=== PATIENT | female | born 1975 | race African-American/Black ===

== ENCOUNTER 2016-09-05 18:01 | Emergency (ER) | payer BC ==
[~2016-09-05 18:01] MED LIST: AMLO2.5T PO; DOCU1CAP39 PO; FERR325T PO; LISI40TA PO
[2016-09-05 18:03] VITALS: BP 189/105; PULSE 73; RESP 15; TEMP 97.8; O2SAT 98
[2016-09-05 18:40] VITALS: BP 175/104; PULSE 75
[2016-09-05 18:52] VITALS: BP 201/111; PULSE 81; RESP 16; O2SAT 99
[2016-09-05 21:00] VITALS: BP 183/107
[2016-09-05] MEDS ORDERED: MECLIZINE HCL 25 MG TAB PO ONE (21:00)
[2016-09-05] MEDS ORDERED: LISINOPRIL 20 MG TAB PO ONE (21:00)
[2016-09-05] MEDS ORDERED: LISI40TA PO (21:08)
[2016-09-05] MEDS ORDERED: MECL-62 PO (21:08)
--- NOTE | 2016-09-05 21:08 | PD ---
HPI Chief Complaint: Dizziness Time Seen by Provider: 20:50 Travel History International Travel<30 days: No Contact w/Intl Traveler<30days: No Traveled to known affect area: No History of Present Illness HPI 40-year-old female complains of lightheaded and dizziness and elevated blood pressure. Patient has history hypertension and ran out of blood pressure medication. Patient usually takes lisinopril 40 mg daily. Patient took 20 mg lisinopril yesterday and non-today. Patient denies any headache. Patient denies any visual change. Patient states that the dizziness is worse with head movement. Patient denies any chest pain or shortness of breath. Patient denies abdominal pain. Patient denies any focal weakness or numbness of extremity. PFSH Past Medical History Anemia: Yes Blood Disorders: No Anxiety: Yes (panic attacks at times) Cancer: No Cardiovascular Problems: Yes Diminished Hearing: No Endocrine: No Genitourinary: No Headaches: Yes Hypertension: Yes Psychiatric: Yes Respiratory: No Seizures: Yes ( A CHILD) ?: Not : 1 Para: 1 Ovarian Cysts: Yes Past Surgical History Abdominal Surgery: Yes (CSEC) Section: Yes (x 1) Social History Alcohol Use: No Tobacco Use: No Substance Use: No Allergies-Medications (Allergen,Severity, Reaction): Coded Allergies: No Known Allergies (Verified , 09/05/16) Reported Meds & Prescriptions Reported Meds & Active Scripts Active Ferrous Sulfate 325 Mg Tab 325 Mg PO BID Lisinopril 40 Mg Tab 40 Mg PO DAILY Review of Systems General / Constitutional: No: Fever Eyes: No: Visual changes HENT: Positive: Lightheadedness, No: Headaches Cardiovascular: No: Chest Pain or Discomfort Respiratory: No: Shortness of Breath Gastrointestinal: No: Abdominal Pain Genitourinary: No: Dysuria Musculoskeletal: No: Pain Skin: No Rash Neurologic: No: Weakness Psychiatric: No: Depression Endocrine: No: Polydipsia Hematologic/Lymphatic: No: Easy Bruising Physical Exam Narrative GENERAL: Well-nourished, well-developed patient. SKIN: Warm and dry. HEAD: Normocephalic. EYES: No scleral icterus. No injection or drainage. NECK: Supple, trachea midline. No JVD or lymphadenopathy. CARDIOVASCULAR: Regular rate and rhythm without murmurs, gallops, or rubs. RESPIRATORY: Breath sounds equal bilaterally. No accessory muscle use. GASTROINTESTINAL: Abdomen soft, non-tender, nondistended. MUSCULOSKELETAL: No cyanosis, or edema. BACK: Nontender without obvious deformity. No CVA tenderness. Neurologic exam normal. Data Data Last Documented VS Vital Signs Date Time Temp Pulse Resp B/P Pulse Ox O2 Delivery O2 Flow Rate FiO2 09/05/16 21:00 183/107 09/05/16 18:52 81 16 99 Room Air 09/05/16 18:03 97.8 Orders Lisinopril (Prinivil) (09/05/16 21:00) Meclizine (Antivert) (09/05/16 21:00) [facility] Medical Decision Making Medical Screen Exam Complete: Yes Emergency Medical Condition: Yes Differential Diagnosis Differential diagnosis including uncontrolled hypertension, hypertensive emergency, hypertensive crisis, acute vertigo. Narrative Course 40-year-old female with dizziness and elevated blood pressure. Patient ran out of blood pressure medication. Lisinopril 40 mg by mouth given. Meclizine 25 mg by mouth given. Diagnosis Primary Impression: Acute onset of severe vertigo Additional Impression: Uncontrolled hypertension Patient Instructions: General Instructions Additional Instructions: Take medications as directed. Follow-up with personal physician. Return if worse. Med/Other Pt SpecificInfo: Prescription(s) given Scripts Lisinopril 40 Mg Tab40 Mg PO DAILY #30 TAB Ref 0 Prov:Kevin Modi MD 09/05/16 Meclizine 25 Mg Tab25 Mg PO TID PRN (VERTIGO) #21 TAB Ref 0 Prov:Kevin Modi MD 09/05/16 Disposition: 01 DISCHARGE HOME Condition: Stable Kevin Modi MD Sep 05, 2016 21:08
== END 2016-09-05 21:21 | disposition home or self-care (01) ==
LOC: NEPA 18:01
DX: R42 Dizziness and giddiness (principal); I10 Essential (primary) hypertension
CPT/HCPCS: 99283

== ENCOUNTER 2016-12-18 18:41 | Emergency (ER) | payer SELFPAY ==
[~2016-12-18] VITALS: Ht 170.2 cm; Wt 90.0 kg
[~2016-12-18 18:41] MED LIST changes: -AMLO2.5T PO; -DOCU1CAP39 PO; +MECL-62 PO
[2016-12-18 18:43] VITALS: BP 168/100; PULSE 96; RESP 20; TEMP 98.2; O2SAT 100
--- NOTE | 2016-12-18 18:54 | PD ---
Physical Exam Date Seen by Provider: Dec 18, 2016 Time Seen by Provider: 18:52 Narrative 41 yo female here for weakness and dizzyness since the afternoon. No precipitating factors. Standing makes dizziness worst. Has headache that feels like a pressure. No chest pain or SOB. No fevers, chills or sweats. Sick contacts in the house. Vitals sign stable. Patient awaiting bed placement. Data Data Last Documented VS Vital Signs Date Time Temp Pulse Resp B/P Pulse Ox O2 Delivery O2 Flow Rate FiO2 12/18/16 18:43 98.2 96 20 168/100 100 Room Air [facility] Medical Record Reviewed: Yes Supervised Visit with JANEEN: Sy Yeh Dec 18, 2016 18:54
[2016-12-18 19:28] VITALS: BP 168/97; PULSE 90; RESP 16; O2SAT 97
[2016-12-18 19:43] VITALS: BP 151/96; PULSE 92
[2016-12-18] MEDS ORDERED: SODIUM CHLOR 0.9% 1000 ML INJ 1,000 ML IV ONE (19:48)
--- NOTE | 2016-12-18 19:50 | PD ---
HPI Chief Complaint: Dizziness Time Seen by Provider: 19:50 Travel History International Travel<30 days: No Contact w/Intl Traveler<30days: No Traveled to known affect area: No History of Present Illness HPI 41-year-old female with a history of hypertension presents to the emergency department for evaluation of weakness, lightheadedness and nausea that began about 4 hours ago. Patient states that after she got off work and went to pick remover her child she started feeling weak and lightheaded. States that she felt physician was going to pass out and felt nauseous. States that since then she has continued to feel weak and nauseous. Denies any fever, chills, vomiting, diarrhea, chest pain, shortness of breath, abdominal pain, numbness or tingling. States she had a slight headache earlier which has resolved. States that she is on her menstrual cycle for the last 3 days and is having heavy vaginal bleeding. States that she's had similar symptoms to this in the past when on her cycle and required a blood transfusion. States that she is not taking her iron supplementation as prescribed. No other complaints. PFSH Past Medical History Anemia: Yes Blood Disorders: No Anxiety: Yes (panic attacks at times) Cancer: No Cardiovascular Problems: Yes Diminished Hearing: No Endocrine: No Genitourinary: No Headaches: Yes Hypertension: Yes Psychiatric: Yes Respiratory: No Seizures: Yes ( A CHILD) Tetanus Vaccination: Unknown Influenza Vaccination: No ?: Not LMP: 12/15/16 : 1 Para: 1 Ovarian Cysts: Yes Past Surgical History Abdominal Surgery: Yes (CSEC) Section: Yes Social History Alcohol Use: No Tobacco Use: No Substance Use: No Allergies-Medications (Allergen,Severity, Reaction): Coded Allergies: No Known Allergies (Verified , 09/05/16) Reported Meds & Prescriptions Reported Meds & Active Scripts Active Lisinopril 40 Mg Tab 40 Mg PO DAILY Meclizine (Meclizine HCl) 25 Mg Tab 25 Mg PO TID PRN Ferrous Sulfate 325 Mg Tab 325 Mg PO BID Lisinopril 40 Mg Tab 40 Mg PO DAILY Review of Systems Except as stated in HPI: all other systems reviewed are Neg Physical Exam Narrative GENERAL: Well-nourished and well-developed pleasant patient in no acute distress who is nontoxic appearing. SKIN: Warm and dry. HEAD: Normocephalic and atraumatic. EYES: No injection, drainage, or hyphema noted. PERRLA. EOMI. ENT: No nasal drainage noted. Oropharynx is clear. NECK: Supple and the trachea is midline. CARDIOVASCULAR: Regular rate and rhythm. RESPIRATORY: Breath sounds are equal bilaterally with no accessory muscle use, wheezing, rhonchi, or crackles. GASTROINTESTINAL: Abdomen is soft, non-tender, and nondistended. MUSCULOSKELETAL: No obvious deformities, swelling, cyanosis, or ecchymosis is present throughout the upper and lower extremities. Patient has full range of motion without any signs of neurovascular compromise. Strength 5/5 upper and lower extremities and equal bilaterally. NEUROLOGICAL: Awake, alert, and oriented. Normal speech and gait. Cranial nerves are grossly intact. Data Data Last Documented VS Vital Signs Date Time Temp Pulse Resp B/P Pulse Ox O2 Delivery O2 Flow Rate FiO2 12/18/16 19:43 92 151/96 12/18/16 19:28 16 12/18/16 19:28 97 Room Air 12/18/16 18:43 98.2 Orders Electrocardiogram (12/18/16 19:48) Complete Blood Count With Diff (12/18/16 19:48) Comprehensive Metabolic Panel (12/18/16 19:48) Chest, Single Ap (12/18/16 19:48) Ecg Monitoring (12/18/16 19:48) Iv Access Insert/Monitor (12/18/16 19:48) Oximetry (12/18/16 19:48) Ondansetron Inj (Zofran Inj) (12/18/16 20:00) Sodium Chloride 0.9% Flush (Ns Flush) (12/18/16 20:00) Sodium Chlor 0.9% 1000 Ml Inj (Ns 1000 M (12/18/16 19:48) Type And Screen (12/18/16 19:51) Ed Urine Pregnancytest Poc (12/18/16 19:57) Troponin I (12/18/16 19:48) Orthostatic Vital Signs (12/18/16 20:55) Labs Laboratory Tests Test 12/18/16 20:05 White Blood Count 6.5 TH/MM3 Red Blood Count 3.57 MIL/MM3 Hemoglobin 8.8 GM/DL Hematocrit 27.5 % Mean Corpuscular Volume 77.0 FL Mean Corpuscular Hemoglobin 24.6 PG Mean Corpuscular Hemoglobin 32.0 % Concent Red Cell Distribution Width 16.0 % Platelet Count 281 TH/MM3 Mean Platelet Volume 9.5 FL Neutrophils (%) (Auto) 72.4 % Lymphocytes (%) (Auto) 18.2 % Monocytes (%) (Auto) 8.3 % Eosinophils (%) (Auto) 0.4 % Basophils (%) (Auto) 0.7 % Neutrophils # (Auto) 4.7 TH/MM3 Lymphocytes # (Auto) 1.2 TH/MM3 Monocytes # (Auto) 0.5 TH/MM3 Eosinophils # (Auto) 0.0 TH/MM3 Basophils # (Auto) 0.0 TH/MM3 CBC Comment AUTO DIFF Blood Type B POSITIVE MDM Medical Decision Making Medical Screen Exam Complete: Yes Emergency Medical Condition: Yes Differential Diagnosis Symptomatic anemia versus dehydration versus electrolyte abnormality versus other Narrative Course 41-year-old female with a history of weakness, lightheadedness and nausea began this afternoon. Patient is afebrile. She is slightly tachycardic with a heart rate of 96 bpm. Otherwise vital signs within normal limits. Physical examination is unremarkable. No focal neurologic deficits. IV access is obtained, labs were drawn and sent. Patient is placed on cardiac telemetry and pulse oximetry monitoring. Patient is administered IV fluids and Zofran. I reviewed the EMR which shows about 6 months ago the patient was admitted for symptom back anemia secondary to heavy vaginal bleeding and did require blood transfusion. Her symptoms at that time were very similar to today's presentation. Patient signed out to my attending physician Dr. Pickard who will assume care of the patient and disposition. Yani Stone Dec 18, 2016 19:50
[2016-12-18] MEDS ORDERED: ONDANSETRON HCL 4 MG/2 ML VIAL IVP ONE (20:00)
[2016-12-18] MEDS ORDERED: SODIUM CHLORIDE 0.9% FLUSH 10 ML FLUSH IVF PRN (20:00)
[2016-12-18 20:29] LABS: AUTOMATED NEUTROPHIL # 4.7 TH/MM3 (1.8-7.7); BASOPHIL % 0.7 % (0.0-2.0); EOSINOPHIL % 0.4 % (0.0-4.0); HEMATOCRIT 27.5 % (35.0-46.0); LYMPH % 18.2 % (9.0-44.0); LYMPHOCYTE # 1.2 TH/MM3 (1.0-4.8); MEAN CORPUSCULAR HEMOGLOBIN 24.6 PG (27.0-34.0); MONO % 8.3 % (0.0-8.0); NEUT % 72.4 % (16.0-70.0); PLATELET COUNT 281 TH/MM3 (150-450); RED BLOOD COUNT 3.57 MIL/MM3 (4.00-5.30); WHITE BLOOD COUNT 6.5 TH/MM3 (4.0-11.0)
[2016-12-18 20:30] LABS: HEMO FLAGS AUTO DIFF
[2016-12-18 21:01] LABS: ANION GAP 6 MEQ/L (5-15); AST (GOT) 11 U/L (15-37); BICARBONATE 27.7 MEQ/L (21.0-32.0); BLOOD UREA NITROGEN 8 MG/DL (7-18); CHLORIDE 104 MEQ/L (98-107); GLOMERULAR FILTRATION RATE 100 ML/MIN (>89); POTASSIUM 3.2 MEQ/L (3.5-5.1); SODIUM (NA) 138 MEQ/L (136-145)
[2016-12-18 21:03] LABS: OVALOCYTES 1+ (NORMAL); PLATELET ESTIMATE SMEAR NORMAL (NORMAL); PLATELET MORPHOLOGY NORMAL (NORMAL); SCAN/DIFF AUTO DIFF CONFIRMED
[2016-12-18 21:05] LABS: ALKALINE PHOSPHATASE 37 U/L (45-117); ALT (GPT) 15 U/L (10-53); TOTAL BILIRUBIN ADULT 0.2 MG/DL (0.2-1.0)
--- NOTE | 2016-12-18 21:15 | RADRPT ---
EXAM DATE/TIME: 12/18/2016 20:25 [facility] COMPARISON: No previous studies available for comparison. INDICATIONS : Patient complains of weakness and dizziness. MEDICAL HISTORY : None. SURGICAL HISTORY : None. ENCOUNTER: Initial ACUITY: 2 days PAIN SCORE: 0/10 LOCATION: chest FINDINGS: A single view of the chest demonstrates the lungs to be symmetrically aerated without evidence of mas s, infiltrate or effusion. The cardiomediastinal contours are unremarkable. Osseous structures are intact. CONCLUSION: No acute disease. Raymond Doll MD on December 18, 2016 at 21:12 Board Certified Radiologist. This report was verified electronically.
[2016-12-18 21:56] VITALS: BP_SYST 153; BP_SYST 157; BP_SYST 161; BP_DIAS 104; BP_DIAS 92; BP_DIAS 93
[2016-12-18 21:59] VITALS: O2SAT 98
--- NOTE | 2016-12-18 22:50 | PD ---
Physical Exam Date Seen by Provider: Dec 18, 2016 Data Data Last Documented VS Vital Signs Date Time Temp Pulse Resp B/P Pulse Ox O2 Delivery O2 Flow Rate FiO2 12/18/16 21:59 98 Room Air 12/18/16 21:56 75 161/104 83 157/93 79 153/92 12/18/16 19:28 16 12/18/16 18:43 98.2 Orders Electrocardiogram (12/18/16 19:48) Complete Blood Count With Diff (12/18/16 19:48) Comprehensive Metabolic Panel (12/18/16 19:48) Chest, Single Ap (12/18/16 19:48) Ecg Monitoring (12/18/16 19:48) Iv Access Insert/Monitor (12/18/16 19:48) Oximetry (12/18/16 19:48) Ondansetron Inj (Zofran Inj) (12/18/16 20:00) Sodium Chloride 0.9% Flush (Ns Flush) (12/18/16 20:00) Sodium Chlor 0.9% 1000 Ml Inj (Ns 1000 M (12/18/16 19:48) Type And Screen (12/18/16 19:51) Ed Urine Pregnancytest Poc (12/18/16 19:57) Troponin I (12/18/16 19:48) Orthostatic Vital Signs (12/18/16 20:55) Labs Laboratory Tests Test 12/18/16 20:05 White Blood Count 6.5 TH/MM3 Red Blood Count 3.57 MIL/MM3 Hemoglobin 8.8 GM/DL Hematocrit 27.5 % Mean Corpuscular Volume 77.0 FL Mean Corpuscular Hemoglobin 24.6 PG Mean Corpuscular Hemoglobin 32.0 % Concent Red Cell Distribution Width 16.0 % Platelet Count 281 TH/MM3 Mean Platelet Volume 9.5 FL Neutrophils (%) (Auto) 72.4 % Lymphocytes (%) (Auto) 18.2 % Monocytes (%) (Auto) 8.3 % Eosinophils (%) (Auto) 0.4 % Basophils (%) (Auto) 0.7 % Neutrophils # (Auto) 4.7 TH/MM3 Lymphocytes # (Auto) 1.2 TH/MM3 Monocytes # (Auto) 0.5 TH/MM3 Eosinophils # (Auto) 0.0 TH/MM3 Basophils # (Auto) 0.0 TH/MM3 CBC Comment AUTO DIFF Differential Comment AUTO DIFF CONFIRMED Platelet Estimate NORMAL Platelet Morphology Comment NORMAL Ovalocytes 1+ Sodium Level 138 MEQ/L Potassium Level 3.2 MEQ/L Chloride Level 104 MEQ/L Carbon Dioxide Level 27.7 MEQ/L Anion Gap 6 MEQ/L Blood Urea Nitrogen 8 MG/DL Creatinine 0.77 MG/DL Estimat Glomerular Filtration 100 ML/MIN Rate Random Glucose 89 MG/DL Calcium Level 8.4 MG/DL Total Bilirubin 0.2 MG/DL Aspartate Amino Transf 11 U/L (AST/SGOT) Alanine Aminotransferase 15 U/L (ALT/SGPT) Alkaline Phosphatase 37 U/L Troponin I LESS THAN 0.02 NG/ML Total Protein 7.3 GM/DL Albumin 3.6 GM/DL Blood Type B POSITIVE Antibody Screen NEGATIVE MDM Medical Record Reviewed: Yes Supervised Visit with JANEEN: Yes Interpretation(s) EKG at 2158: NSR at 75bpm, qt/qtc: 399/428, no acute st or t wave changes Vital Signs Date Time Temp Pulse Resp B/P Pulse Ox O2 Delivery O2 Flow Rate FiO2 12/18/16 21:59 98 Room Air 12/18/16 21:56 75 161/104 83 157/93 79 153/92 12/18/16 19:43 92 151/96 12/18/16 19:28 16 12/18/16 19:28 90 16 168/97 97 Room Air 12/18/16 18:43 98.2 96 20 168/100 100 Room Air Laboratory Tests Test 12/18/16 20:05 White Blood Count 6.5 TH/MM3 (4.0-11.0) Red Blood Count 3.57 MIL/MM3 (4.00-5.30) Hemoglobin 8.8 GM/DL (11.6-15.3) Hematocrit 27.5 % (35.0-46.0) Mean Corpuscular Volume 77.0 FL (80.0-100.0) Mean Corpuscular Hemoglobin 24.6 PG (27.0-34.0) Mean Corpuscular Hemoglobin 32.0 % Concent (32.0-36.0) Red Cell Distribution Width 16.0 % (11.6-17.2) Platelet Count 281 TH/MM3 (150-450) Mean Platelet Volume 9.5 FL (7.0-11.0) Neutrophils (%) (Auto) 72.4 % (16.0-70.0) Lymphocytes (%) (Auto) 18.2 % (9.0-44.0) Monocytes (%) (Auto) 8.3 % (0.0-8.0) Eosinophils (%) (Auto) 0.4 % (0.0-4.0) Basophils (%) (Auto) 0.7 % (0.0-2.0) Neutrophils # (Auto) 4.7 TH/MM3 (1.8-7.7) Lymphocytes # (Auto) 1.2 TH/MM3 (1.0-4.8) Monocytes # (Auto) 0.5 TH/MM3 (0-0.9) Eosinophils # (Auto) 0.0 TH/MM3 (0-0.4) Basophils # (Auto) 0.0 TH/MM3 (0-0.2) CBC Comment AUTO DIFF Differential Comment AUTO DIFF CONFIRMED Platelet Estimate NORMAL (NORMAL) Platelet Morphology Comment NORMAL (NORMAL) Ovalocytes 1+ (NORMAL) Sodium Level 138 MEQ/L (136-145) Potassium Level 3.2 MEQ/L (3.5-5.1) Chloride Level 104 MEQ/L (98-107) Carbon Dioxide Level 27.7 MEQ/L (21.0-32.0) Anion Gap 6 MEQ/L (5-15) Blood Urea Nitrogen 8 MG/DL (7-18) Creatinine 0.77 MG/DL (0.50-1.00) Estimat Glomerular Filtration 100 ML/MIN Rate (>89) Random Glucose 89 MG/DL (74-106) Calcium Level 8.4 MG/DL (8.5-10.1) Total Bilirubin 0.2 MG/DL (0.2-1.0) Aspartate Amino Transf 11 U/L (15-37) (AST/SGOT) Alanine Aminotransferase 15 U/L (10-53) (ALT/SGPT) Alkaline Phosphatase 37 U/L (45-117) Troponin I LESS THAN 0.02 NG/ML (0.02-0.05) Total Protein 7.3 GM/DL (6.4-8.2) Albumin 3.6 GM/DL (3.4-5.0) Blood Type B POSITIVE Antibody Screen NEGATIVE Last Impressions Chest X-Ray 12/18/161947 Signed Impressions: Service Date/Time: Sunday, December 18, 2016 20:25 - CONCLUSION: No acute disease. Raymond Doll MD Differential Diagnosis Anemia, dehydration, electrolyte abnormality, arrhythmia Narrative Course I, Dr. Pickard, have reviewed the advance practice practitioner's documentation and am in agreement, met with the patient face to face, made the diagnosis, and the medical decision making was done by me. *My assessment and Findings: Symptomatic anemia most likely from menstrual bleeding and iron deficiency anemia. Patient is a 41-year-old female who presents to emergency room with complaints of lightheadedness, dizziness, nausea which began around 4 hours prior to arrival to emergency room. Patient reports that she currently is on day 3 of her menstrual cycle, patient reports that she has had very heavy menstrual bleeding. Patient reports that she does have history of anemia, reports that she is supposed to be taking iron supplements, reports that she stopped taking these iron supplements as she was feeling better. Patient here as she was concerned that her blood count was low or her blood pressure was too high. Patient did have blood work while emergency room. CBC & BMP Diagram 12/18/16 20:05 Patient's hemoglobin is 8.8, this was reviewed with patient. We'll restart her iron supplements. Patient reports that overall, she is feeling much better at this time. Signs and symptoms of when to return to the emergency room was reviewed with patient. Patient understands importance of following with a primary care doctor. She will return to the emergency as needed or symptoms worsen or progress. Diagnosis Primary Impression: Anemia Qualified Code: D50.8 - Other iron deficiency anemia Additional Impressions: Dizziness Hypokalemia Patient Instructions: General Instructions Additional Instruction: Please follow-up with your primary care doctor Return to emergency medicine as needed Return to the ER if your symptoms worsen or progress Please take her iron supplements for your anemia Disposition: 01 DISCHARGE HOME Condition: Stable NeerajManjula DO Dec 18, 2016 22:50
[2016-12-18] MEDS ORDERED: POTASSIUM CHLORIDE 10 MEQ CONTROLLED RELEASE TAB PO ONE (23:00)
--- NOTE | 2016-12-19 19:11 | EKG ---
Date Performed: 12/18/2016 Time Performed: 21:58:19 PTAGE: 41 years EKG: Sinus rhythm NORMAL ECG PREVIOUS TRACING : 07/22/2016 22.46 Compared to prior tracing no significant change DOCTOR: Jeremy Carty Interpretating Date/Time 12/19/2016 19:10:16
== END 2016-12-18 23:21 | disposition home or self-care (01) ==
LOC: NEPD 18:41
DX: D50.0 Iron deficiency anemia secondary to blood loss (chronic) (principal); I10 Essential (primary) hypertension; E87.6 Hypokalemia; Z91.14 Patient's other noncompliance with medication regimen
CPT/HCPCS: 71010; 80053; 84484; 85025; 86850; 86900; 86901; 93005; 96361; 96374; 99285; J2405; J7030

== ENCOUNTER 2017-04-07 18:26 | Emergency (ER) | payer SELFPAY ==
[2017-04-07] VITALS (7 sets, daily range): BP systolic 146–183; BP diastolic 96–108; PULSE 74–85; RESP 16–18; TEMP 98.6; O2SAT 97–99
[~2017-04-07] VITALS: Ht 170.2 cm; Wt 90.0 kg
[2017-04-07] MEDS ORDERED: SODIUM CHLORIDE 0.9% FLUSH 10 ML FLUSH IVF PRN (19:45)
[2017-04-07] MEDS ORDERED: cloNIDine HCL 0.1 MG TAB PO ONE (19:45)
--- NOTE | 2017-04-07 19:48 | PD ---
HPI Chief Complaint: Hypertension Time Seen by Provider: 19:41 Travel History International Travel<30 days: No Contact w/Intl Traveler<30days: No Traveled to known affect area: No History of Present Illness HPI 41-year-old female presents to the emergency department for evaluation of high blood pressure and tingling about the head and not feeling well. Patient states she's been out of her [facility] blood pressure medication times one month and took her last dose of lisinopril today 20 mg this morning and a remaining half dose of 10 mg this evening after 4 PM. Patient denies sudden onset worst ever headache visual disturbance blurred vision double vision loss of vision confusion difficulty with speech difficulty swallowing balance disturbance upper or lower extremity numbness tingling or weakness also denies any chest pain palpitations sweats nausea vomiting shortness of breath abdominal pain referred neck jaw back shoulder arm pain. Pain in triage 6/10, presently 0/10. Patient states that she has not felt well all day. Patient states that she was here at the hospital bringing her brother to the hospital for evaluation when she started to feel suddenly worse. Patient has long-standing history of poorly controlled hypertension. Patient also has history of anemia and required blood transfusion within the past 6 months. Patient states she has heavy menses and was not aware she was anemic and that she had not had issues with requiring previous transfusion. Patient takes no current iron supplementation. Patient's last period is current. PFSH Past Medical History Narrative Medical Anemia anxiety hypertension headaches childhood seizure Ab0 no tobacco use no alcohol use no substance use; nursing notes reviewed Anemia: Yes Blood Disorders: No Anxiety: Yes (panic attacks at times) Cancer: No Cardiovascular Problems: Yes Diminished Hearing: No Endocrine: No Genitourinary: No Headaches: Yes Hypertension: Yes Psychiatric: Yes Respiratory: No Seizures: Yes ( A CHILD) : 1 Para: 1 Ovarian Cysts: Yes Past Surgical History Abdominal Surgery: Yes (CSEC) Section: Yes Social History Alcohol Use: No Tobacco Use: No Substance Use: No Allergies-Medications (Allergen,Severity, Reaction): Coded Allergies: No Known Allergies (Verified , 04/07/17) Reported Meds & Prescriptions Reported Meds & Active Scripts Active Macrobid (Nitrofurantoin Monoh/Nitrofur Macro) 100 Mg Cap 100 Mg PO BID Amlodipine (Amlodipine Besylate) 10 Mg Tab 10 Mg PO DAILY Lisinopril 20 Mg Tab 20 Mg PO DAILY Reported Amlodipine (Amlodipine Besylate) 10 Mg Tab 10 Mg PO DAILY Lisinopril 20 Mg Tab 20 Mg PO DAILY Ferrous Sulfate 325 Mg (65 Mg Iron) Tablet 325 Mg PO DAILY Review of Systems Except as stated in HPI: all other systems reviewed are Neg General / Constitutional: No: Fever, Chills Eyes: No: Visual changes HENT: Positive: Headaches (this am--not sudden onset not thunderclap not worst ever), No: Vertigo, Neck Pain Cardiovascular: No: Chest Pain or Discomfort Respiratory: No: Shortness of Breath Gastrointestinal: No: Abdominal Pain Genitourinary: No: Flank Pain Musculoskeletal: No: Pain Skin: No Rash Neurologic: No: Weakness Psychiatric: No: Anxiety Hematologic/Lymphatic: No: Lymph Node Enlargement Physical Exam Narrative GENERAL: Well-developed well-nourished female in no acute distress no respiratory distress; GCS 15; blood pressure hypertensive SKIN: Warm and dry. HEAD: Atraumatic. Normocephalic. EYES: Pupils equal and round. Extraocular muscles intact. No scleral icterus. No injection or drainage. ENT: No nasal bleeding or discharge. Mucous membranes pink and moist. NECK: Trachea midline. No JVD. Supple no meningismus. CARDIOVASCULAR: Regular rate and rhythm. RESPIRATORY: No accessory muscle use. Clear to auscultation. Breath sounds equal bilaterally. GASTROINTESTINAL: Abdomen soft, non-tender, nondistended. Hepatic and splenic margins not palpable. MUSCULOSKELETAL: Extremities without clubbing, cyanosis, or edema. No obvious deformities. NEUROLOGICAL: Awake and alert. No obvious cranial nerve deficits. Motor grossly within normal limits. Five out of 5 muscle strength in the arms and legs. No limb ataxia. No pronator drift. Sensory exam intact. Normal speech. PSYCHIATRIC: Appropriate mood and affect; insight and judgment normal. Data Data Last Documented VS Vital Signs Date Time Temp Pulse Resp B/P Pulse Ox O2 Delivery O2 Flow Rate FiO2 04/07/17 20:05 85 18 162/96 97 Room Air 04/07/17 18:31 98.6 Orders Electrocardiogram (04/07/17 19:41) Basic Metabolic Panel (Bmp) (04/07/17 19:41) Complete Blood Count With Diff (04/07/17 19:41) Magnesium (Mg) (04/07/17 19:41) Urinalysis - C+S If Indicated (04/07/17 19:41) Chest, Single Ap (04/07/17 19:41) Ecg Monitoring (04/07/17 19:41) Iv Access Insert/Monitor (04/07/17 19:41) Oximetry (04/07/17 19:41) Sodium Chloride 0.9% Flush (Ns Flush) (04/07/17 19:45) Ed Urine Pregnancytest Poc (04/07/17 19:41) Clonidine (Catapres) (04/07/17 19:45) Urine Culture (04/07/17 19:40) Labs Laboratory Tests Test 04/07/17 19:40 White Blood Count 6.2 TH/MM3 Red Blood Count 4.34 MIL/MM3 Hemoglobin 10.9 GM/DL Hematocrit 33.8 % Mean Corpuscular Volume 77.8 FL Mean Corpuscular Hemoglobin 25.1 PG Mean Corpuscular Hemoglobin 32.2 % Concent Red Cell Distribution Width 19.1 % Platelet Count 267 TH/MM3 Mean Platelet Volume 9.5 FL Neutrophils (%) (Auto) 54.2 % Lymphocytes (%) (Auto) 32.1 % Monocytes (%) (Auto) 9.0 % Eosinophils (%) (Auto) 2.6 % Basophils (%) (Auto) 2.1 % Neutrophils # (Auto) 3.3 TH/MM3 Lymphocytes # (Auto) 2.0 TH/MM3 Monocytes # (Auto) 0.6 TH/MM3 Eosinophils # (Auto) 0.2 TH/MM3 Basophils # (Auto) 0.1 TH/MM3 CBC Comment DIFF FINAL Differential Comment Urine Color YELLOW Urine Turbidity SLIGHT Urine pH 6.5 Urine Specific [place] 1.029 Urine Protein 30 mg/dL Urine Glucose (UA) NEG mg/dL Urine Ketones NEG mg/dL Urine Occult Blood LARGE Urine Nitrite NEG Urine Bilirubin NEG Urine Leukocyte Esterase SMALL Urine RBC 100-200 /hpf Urine WBC 9-14 /hpf Urine WBC Clumps FEW Urine Squamous Epithelial 0-5 /hpf Cells Urine Bacteria FEW /hpf Microscopic Urinalysis Comment CULTURE INDICATED Sodium Level 138 MEQ/L Potassium Level 3.7 MEQ/L Chloride Level 106 MEQ/L Carbon Dioxide Level 26.0 MEQ/L Anion Gap 6 MEQ/L Blood Urea Nitrogen 11 MG/DL Creatinine 0.76 MG/DL Estimat Glomerular Filtration 101 ML/MIN Rate Random Glucose 86 MG/DL Calcium Level 8.3 MG/DL Magnesium Level 2.1 MG/DL MDM Medical Decision Making Medical Screen Exam Complete: Yes Emergency Medical Condition: Yes Medical Record Reviewed: Yes Interpretation(s) EKG: Normal sinus rhythm rate [address] elevation or injury pattern or ectopy noted POC hcg: negative UA: Positive protein positive blood positive white blood cells positive for clumped white blood cells constant few bacteria; culture indicated, possible cross contamination secondary to menses Last Impressions Chest X-Ray 04/07/171940 Signed Impressions: Service Date/Time: Friday, April 07, 2017 19:52 - CONCLUSION: Mild enlargement of the heart. Raymond Doll MD CBC & BMP Diagram 04/07/17 19:40 Vital Signs Date Time Temp Pulse Resp B/P Pulse Ox O2 Delivery O2 Flow Rate FiO2 04/07/17 19:40 99 Room Air 04/07/17 19:30 76 18 183/107 99 04/07/17 18:31 98.6 83 16 175/108 99 Room Air Differential Diagnosis Uncontrolled hypertension, hypertensive urgency, electronic disturbance, anemia , noncompliance, refill Narrative Course 41-year-old female with some somatic poorly controlled hypertension after taking lisinopril 30 mg by mouth today without improvement of blood pressure elevation or symptom relief. IV access obtained patient placed on cardiac monitors specimens collected and patient given a one-time dose of clonidine 0.1 mg by mouth Repeat blood pressure 160/90 prior to administration of clonidine Patient's blood pressure again increasing therefore clonidine was administered; diagnostics found to be in normal range; prescription refills provided At 9:25 PM patient is clinically improved and stable for outpatient management; pain 0/10 Diagnosis Primary Impression: HTN (hypertension) Qualified Code: I10 - Essential hypertension Additional Impressions: Medication refill Abnormal urinalysis Referrals: Primary Care Physician call for appointment Patient Instructions: General Instructions Additional Instructions: Take chronic antihypertensive medications as prescribed Follow-up with your primary care provider Return to the emergency department for any concerns or change in condition Med/Other Pt SpecificInfo: Prescription(s) given Scripts Clonidine 0.1 Mg Tab0.1 Mg PO Q12HR PRN (SBP>180, DBP>95) #5 TAB Ref 0 Prov:Mindy Abbott MD 04/07/17 Nitrofurantoin Monohydrate Macrocrystals (Macrobid)100 Mg [id number] Mg PO BID #6 CAP Ref 0 Prov:Mindy Abbott MD 04/07/17 Amlodipine 10 Mg Tab10 Mg PO DAILY #30 TAB Ref 0 Prov:Mindy Abbott MD 04/07/17 Lisinopril 20 Mg Tab20 Mg PO DAILY #30 TAB Ref 0 Prov:Mindy Abbott MD 04/07/17 Disposition: 01 DISCHARGE HOME Condition: Stable Mindy Abbott MD Apr 07, 2017 19:48
--- NOTE | 2017-04-07 20:00 | RADRPT ---
EXAM DATE/TIME: 04/07/2017 19:52 [facility] COMPARISON: CHEST SINGLE AP, December 18, 2016, 20:25. INDICATIONS : Short of breath. MEDICAL HISTORY : Hypertension. SURGICAL HISTORY : None. ENCOUNTER: Initial ACUITY: 1 day PAIN SCORE: 0/10 LOCATION: Bilateral chest FINDINGS: The heart size is mildly enlarged. The lungs are clear. No effusion is seen. CONCLUSION: Mild enlargement of the heart. Raymond Doll MD on April 07, 2017 at 19:58 Board Certified Radiologist. This report was verified electronically.
[2017-04-07 20:06] LABS: BLOOD, URINE LARGE (NEG); GLUCOSE,URINE NEG (NEG); KETONE, URINE NEG (NEG); NITRITE,URINE NEG (NEG); PH, URINE 6.5 (5.0-8.5)
[2017-04-07 20:07] LABS: AUTOMATED NEUTROPHIL # 3.3 TH/MM3 (1.8-7.7); BASOPHIL # 0.1 TH/MM3 (0-0.2); BASOPHIL % 2.1 % (0.0-2.0); EOSINOPHIL # 0.2 TH/MM3 (0-0.4); EOSINOPHIL % 2.6 % (0.0-4.0); HEMATOCRIT 33.8 % (35.0-46.0); HEMO FLAGS DIFF FINAL; LYMPH % 32.1 % (9.0-44.0); MEAN CELL VOLUME 77.8 FL (80.0-100.0); MEAN CORPUSCULAR HEMOGLOBIN 25.1 PG (27.0-34.0); MEAN CORPUSCULAR HGB CONC 32.2 % (32.0-36.0); NEUT % 54.2 % (16.0-70.0); PLATELET COUNT 267 TH/MM3 (150-450); RED BLOOD COUNT 4.34 MIL/MM3 (4.00-5.30); RED CELL DISTRIBUTION WIDTH 19.1 % (11.6-17.2); WHITE BLOOD COUNT 6.2 TH/MM3 (4.0-11.0)
[2017-04-07 20:09] LABS: URINE COLOR YELLOW (YELLW/STRAW)
[2017-04-07 20:11] LABS: BACTERIA, URINE FEW /hpf; COMMENT (UR) CULTURE INDICATED; CULTURE IF INDICATED CULTURE INDICATED; RBC, URINE 100-200 /hpf (0-3); SQUAMOUS EPITHELIAL CELL URINE 0-5 /hpf (0-5)
[2017-04-07 20:18] LABS: POTASSIUM 3.7 MEQ/L (3.5-5.1)
[2017-04-07 20:21] LABS: MAGNESIUM 2.1 MG/DL (1.5-2.5)
[2017-04-07] MEDS ORDERED: FERR325T8 PO (20:42)
[2017-04-07] MEDS ORDERED: LISI-515 PO ×2 (20:42→20:56)
[2017-04-07] MEDS ORDERED: AMLO10TA2 PO ×2 (20:43→20:56)
[2017-04-07] MEDS ORDERED: MACR100C2 PO (20:56)
[2017-04-07] MEDS ORDERED: CLON0.1T PO (21:24)
--- NOTE | 2017-04-08 09:08 | EKG ---
Date Performed: 04/07/2017 Time Performed: 20:00:07 PTAGE: 41 years EKG: Sinus rhythm NORMAL ECG PREVIOUS TRACING : 12/18/2016 21.58 Compared to prior tracing no significant change DOCTOR: Mason Miranda Interpretating Date/Time 04/08/2017 09:01:07
== END 2017-04-07 22:04 | disposition home or self-care (01) ==
LOC: PHED 18:26
DX: I10 Essential (primary) hypertension (principal); R82.99 Other abnormal findings in urine; Z76.0 Encounter for issue of repeat prescription; Z79.899 Other long term (current) drug therapy; Z86.2 Personal history of diseases of the blood and blood-forming organs and certain disorders involving the immune mechanism; Z86.59 Personal history of other mental and behavioral disorders; Z86.79 Personal history of other diseases of the circulatory system; Z86.69 Personal history of other diseases of the nervous system and sense organs; Z87.42 Personal history of other diseases of the female genital tract
CPT/HCPCS: 71010; 80048; 81001; 83735; 84703; 85025; 87086; 93005; 99285

== ENCOUNTER 2017-04-22 22:35 | Emergency (ER) | payer SELFPAY ==
[~2017-04-22 22:35] MED LIST changes: +AMLO10TA2 PO; +CLON0.1T PO; -FERR325T PO; +FERR325T8 PO; +LISI-515 PO; -LISI40TA PO; +MACR100C2 PO; -MECL-62 PO
[2017-04-22 22:38] VITALS: BP 160/96; PULSE 92; RESP 16; TEMP 98.6; O2SAT 100
== END 2017-04-23 00:34 | disposition left against medical advice (07) ==
LOC: NED 22:35
DX: Z53.21 Procedure and treatment not carried out due to patient leaving prior to being seen by health care provider (principal)
CPT/HCPCS: 99281

== ENCOUNTER 2017-08-14 11:35 | Emergency (ER) | payer SELFPAY ==
[~2017-08-14] VITALS: Ht 170.2 cm; Wt 93.0 kg
[~2017-08-14 11:35] MED LIST changes: +FERR325T18 PO; -FERR325T8 PO
[2017-08-14 11:48] VITALS: BP 142/94; PULSE 94; RESP 14; TEMP 98.4; O2SAT 99
[2017-08-14] MEDS ORDERED: SODIUM CHLORIDE 0.9% FLUSH 10 ML FLUSH IVF PRN (12:15)
--- NOTE | 2017-08-14 12:24 | PD ---
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 She denies any chest pains , shortness of breath, abdominal pains, fevers, or any other symptoms. She has had no neurological deficits. She states that she has been having heavy menses although she is not currently having any vaginal bleeding. Modifying Factors: None Associated Signs & Symptoms: Lightheadedness, nausea Risk Factors: History of anemia PFSH Past Medical History Anemia: Yes Blood Disorders: No Anxiety: Yes (panic attacks at times) Cancer: No Cardiovascular Problems: Yes Diminished Hearing: No Endocrine: No Genitourinary: No Headaches: Yes Hypertension: Yes Psychiatric: Yes Respiratory: No Seizures: Yes ( A CHILD) Tetanus Vaccination: Unknown Influenza Vaccination: No ?: Not LMP: JUNE 2017 : 1 Para: 1 Ovarian Cysts: Yes Past Surgical History Abdominal Surgery: Yes (CSEC) Section: Yes Other Surgery: Yes Social History Alcohol Use: No Tobacco Use: No Substance Use: No Allergies-Medications (Allergen,Severity, Reaction): Coded Allergies: No Known Allergies (Verified Adverse Reaction, Unknown, 08/14/17) Reported Meds & Prescriptions Reported Meds & Active Scripts Active Clonidine (Clonidine HCl) 0.1 Mg Tab 0.1 Mg PO Q12HR PRN Macrobid (Nitrofurantoin Monoh/Nitrofur Macro) 100 Mg Cap 100 Mg PO BID Amlodipine (Amlodipine Besylate) 10 Mg Tab 10 Mg PO DAILY Lisinopril 20 Mg Tab 20 Mg PO DAILY Reported Amlodipine (Amlodipine Besylate) 10 Mg Tab 10 Mg PO DAILY Lisinopril 20 Mg Tab 20 Mg PO DAILY Ferrous Sulfate 325 Mg (65 Mg Iron) Tablet 325 Mg PO DAILY Review of Systems Except as stated in HPI: all other systems reviewed are Neg Physical Exam Narrative GENERAL: Well-developed middle age after [place] female patient currently in mild distress. SKIN: Focused skin assessment warm/dry. HEAD: Atraumatic. Normocephalic. EYES: Pupils equal and round. No scleral icterus. No injection or drainage. ENT: No nasal bleeding or discharge. Mucous membranes pink and moist. NECK: Trachea midline. No JVD. CARDIOVASCULAR: Regular rate and rhythm. No murmur appreciated. RESPIRATORY: No accessory muscle use. Clear to auscultation. Breath sounds equal bilaterally. GASTROINTESTINAL: Abdomen soft, non-tender, nondistended. Hepatic and splenic margins not palpable. MUSCULOSKELETAL: No obvious deformities. No clubbing. No cyanosis. No edema. NEUROLOGICAL: Awake and alert. No obvious cranial nerve deficits. Motor grossly within normal limits. Normal speech. PSYCHIATRIC: Appropriate mood and affect; insight and judgment normal. Data Data Last Documented VS Vital Signs Date Time Temp Pulse Resp B/P (MAP) Pulse Ox O2 Delivery O2 Flow Rate FiO2 08/14/17 12:31 94 18 117/80 (92) 98 Room Air 08/14/17 11:48 98.4 Orders Orders Electrocardiogram (08/14/17 12:10) Ed Urine Pregnancytest Poc (08/14/17 12:10) Complete Blood Count With Diff (08/14/17 12:10) Comprehensive Metabolic Panel (08/14/17 12:10) Troponin I (08/14/17 12:10) Urinalysis - C+S If Indicated (08/14/17 12:10) Chest, Single Ap (08/14/17 12:10) Ecg Monitoring (08/14/17 12:10) Iv Access Insert/Monitor (08/14/17 12:10) Oximetry (08/14/17 12:10) Sodium Chloride 0.9% Flush (Ns Flush) (08/14/17 12:15) Labs Laboratory Tests Test 08/14/17 12:27 08/14/17 13:45 White Blood Count 7.3 TH/MM3 Red Blood Count 4.28 MIL/MM3 Hemoglobin 11.3 GM/DL Hematocrit 34.4 % Mean Corpuscular Volume 80.4 FL Mean Corpuscular Hemoglobin 26.4 PG Mean Corpuscular Hemoglobin Concent 32.9 % Red Cell Distribution Width 14.8 % Platelet Count 268 TH/MM3 Mean Platelet Volume 9.3 FL Neutrophils (%) (Auto) 67.2 % Lymphocytes (%) (Auto) 18.9 % Monocytes (%) (Auto) 12.2 % Eosinophils (%) (Auto) 1.2 % Basophils (%) (Auto) 0.5 % Neutrophils # (Auto) 4.9 TH/MM3 Lymphocytes # (Auto) 1.4 TH/MM3 Monocytes # (Auto) 0.9 TH/MM3 Eosinophils # (Auto) 0.1 TH/MM3 Basophils # (Auto) 0.0 TH/MM3 CBC Comment DIFF FINAL Differential Comment Blood Urea Nitrogen 10 MG/DL Creatinine 0.71 MG/DL Random Glucose 88 MG/DL Total Protein 7.9 GM/DL Albumin 3.3 GM/DL Calcium Level 8.4 MG/DL Alkaline Phosphatase 45 U/L Aspartate Amino Transf (AST/SGOT) 13 U/L Alanine Aminotransferase (ALT/SGPT) 19 U/L Total Bilirubin 0.4 MG/DL Sodium Level 139 MEQ/L Potassium Level 3.8 MEQ/L Chloride Level 106 MEQ/L Carbon Dioxide Level 26.5 MEQ/L Anion Gap 7 MEQ/L Estimat Glomerular Filtration Rate 110 ML/MIN Troponin I LESS THAN 0.02 NG/ML Urine Color YELLOW Urine Turbidity HAZY Urine pH 6.0 Urine Specific [place] 1.029 Urine Protein 30 mg/dL Urine Glucose (UA) NEG mg/dL Urine Ketones NEG mg/dL Urine Occult Blood NEG Urine Nitrite NEG Urine Bilirubin NEG Urine Urobilinogen LESS THAN 2.0 MG/DL Urine Leukocyte Esterase SMALL Urine RBC 1 /hpf Urine WBC 2 /hpf Urine Squamous Epithelial Cells 4 /hpf Urine Mucus MOD /lpf Microscopic Urinalysis Comment CULT NOT INDICATED MDM Medical Decision Making Medical Screen Exam Complete: Yes Emergency Medical Condition: Yes Medical Record Reviewed: Yes Interpretation(s) EKG shows NSR, no ST elevation or depression, and no arrhythmias. No significant T-wave inversions. No signs of QT prolongation or delta waves. Laboratory Tests Test 08/14/17 12:27 08/14/17 13:45 Hemoglobin 11.3 GM/DL (11.6-15.3) Hematocrit 34.4 % (35.0-46.0) Mean Corpuscular Hemoglobin 26.4 PG (27.0-34.0) Monocytes (%) (Auto) 12.2 % (0.0-8.0) Albumin 3.3 GM/DL (3.4-5.0) Calcium Level 8.4 MG/DL (8.5-10.1) Aspartate Amino Transf (AST/SGOT) 13 U/L (15-37) Troponin I LESS THAN 0.02 NG/ML Urine Turbidity HAZY (CLEAR) Urine Protein 30 mg/dL (NEG-TRACE) Urine Leukocyte Esterase SMALL (NEG) Urine Mucus MOD /lpf (OCC) Last 24 hours Impressions Chest X-Ray 08/14/17 1210 Signed Impressions: Service Date/Time: Monday, August 14, 2017 12:16 - CONCLUSION: No acute disease. Alejo Deshpande MD FACR Differential Diagnosis Dizziness, nausea: Symptomatic anemia versus dehydration versus metabolic issues versus vertigo versus dysrhythmias Narrative Course Lab work did not indicate significant metabolic issues or dehydration. EKG did not show any dysrhythmias. She has not anemic. At this point, vital signs are stable. My plan would be to release her with follow-up to primary care doctor. Return for worsening in symptoms as necessary. The plan has discussed with her and she states understanding. Diagnosis Primary Impression: Dizziness Disposition: 01 DISCHARGE HOME Condition: Stable Meghna Yepez MD Aug 14, 2017 12:23
--- NOTE | 2017-08-14 12:29 | RADRPT ---
EXAM DATE/TIME: 08/14/2017 12:16 [facility] COMPARISON: CHEST SINGLE AP, April 07, 2017, 19:52. INDICATIONS : Shortness of breath and light headedness. MEDICAL HISTORY : Hypertension. SURGICAL HISTORY : None. ENCOUNTER: Initial ACUITY: 3 days PAIN SCORE: 0/10 LOCATION: Bilateral chest FINDINGS: A single view of the chest demonstrates the lungs to be symmetrically aerated without evidence of mas s, infiltrate or effusion. The cardiomediastinal contours are unremarkable. Osseous structures are intact. CONCLUSION: No acute disease. Alejo Deshpande MD FACR on August 14, 2017 at 12:27 Board Certified Radiologist. This report was verified electronically.
[2017-08-14 12:31] VITALS: BP 117/80; PULSE 94; RESP 18; O2SAT 98
[2017-08-14 12:52] LABS: AUTOMATED NEUTROPHIL # 4.9 TH/MM3 (1.8-7.7); BASOPHIL % 0.5 % (0.0-2.0); EOSINOPHIL # 0.1 TH/MM3 (0-0.4); EOSINOPHIL % 1.2 % (0.0-4.0); HEMATOCRIT 34.4 % (35.0-46.0); HEMOGLOBIN 11.3 GM/DL (11.6-15.3); LYMPH % 18.9 % (9.0-44.0); LYMPHOCYTE # 1.4 TH/MM3 (1.0-4.8); MEAN CELL VOLUME 80.4 FL (80.0-100.0); MEAN CORPUSCULAR HEMOGLOBIN 26.4 PG (27.0-34.0); MEAN CORPUSCULAR HGB CONC 32.9 % (32.0-36.0); MEAN PLATELET VOLUME 9.3 FL (7.0-11.0); MONO % 12.2 % (0.0-8.0); MONOCYTE # 0.9 TH/MM3 (0-0.9); NEUT % 67.2 % (16.0-70.0); PLATELET COUNT 268 TH/MM3 (150-450); RED BLOOD COUNT 4.28 MIL/MM3 (4.00-5.30); RED CELL DISTRIBUTION WIDTH 14.8 % (11.6-17.2); WHITE BLOOD COUNT 7.3 TH/MM3 (4.0-11.0)
[2017-08-14 13:14] LABS: ALBUMIN 3.3 GM/DL (3.4-5.0); ALT (GPT) 19 U/L (10-53); AST (GOT) 13 U/L (15-37); BICARBONATE 26.5 MEQ/L (21.0-32.0); BLOOD UREA NITROGEN 10 MG/DL (7-18); CALCIUM 8.4 MG/DL (8.5-10.1); CHLORIDE 106 MEQ/L (98-107); CREATININE 0.71 MG/DL (0.50-1.00); GLOMERULAR FILTRATION RATE 110 ML/MIN (>89); GLUCOSE,RANDOM 88 MG/DL (74-106); SODIUM (NA) 139 MEQ/L (136-145)
[2017-08-14 13:18] LABS: ALKALINE PHOSPHATASE 45 U/L (45-117); TOTAL BILIRUBIN ADULT 0.4 MG/DL (0.2-1.0); TOTAL PROTEIN 7.9 GM/DL (6.4-8.2); TROPONIN I LESS THAN 0.02 NG/ML (0.02-0.05)
[2017-08-14 14:00] LABS: BILIRUBIN, URINE NEG (NEG); BLOOD, URINE NEG (NEG); GLUCOSE,URINE NEG (NEG); KETONE, URINE NEG (NEG); MUCUS URINE MOD /lpf (OCC); NITRITE,URINE NEG (NEG); SQUAMOUS EPITHELIAL CELL URINE 4 /hpf (0-5); URINE COLOR YELLOW (YELLW/STRAW); URINE LEUKOCYTE ESTERASE SMALL (NEG)
[2017-08-14 14:13] VITALS: BP 154/90
--- NOTE | 2017-08-14 16:43 | EKG ---
Date Performed: 08/14/2017 Time Performed: 12:21:33 PTAGE: 41 years EKG: Sinus rhythm NORMAL ECG PREVIOUS TRACING : 04/07/2017 20.00 Compared to prior tracing no significant change DOCTOR: Jeremy Carty Interpretating Date/Time 08/14/2017 16:43:03
== END 2017-08-14 14:18 | disposition home or self-care (01) ==
LOC: NEPD 11:35
DX: R42 Dizziness and giddiness (principal); R11.0 Nausea; N93.8 Other specified abnormal uterine and vaginal bleeding; D64.9 Anemia, unspecified; F41.9 Anxiety disorder, unspecified; I10 Essential (primary) hypertension; R56.9 Unspecified convulsions
CPT/HCPCS: 71010; 80053; 81001; 84484; 84703; 85025; 93005; 99285

== ENCOUNTER 2017-09-18 13:01 | Emergency (ER) | payer BC ==
[~2017-09-18] VITALS: Ht 170.2 cm; Wt 90.0 kg
[2017-09-18 13:02] VITALS: BP 162/82; PULSE 86; RESP 16; TEMP 98.1; O2SAT 98
[2017-09-18 13:43] VITALS: BP 150/83; PULSE 78; RESP 16; TEMP 97.8; O2SAT 100
[2017-09-18] MEDS ORDERED: ACETAMINOPHEN/HYDROcodone 325 MG/5 MG TAB PO ONE (13:45)
[2017-09-18] MEDS ORDERED: ONDANSETRON ODT 4 MG TAB PO ONE (13:45)
--- NOTE | 2017-09-18 14:08 | PD ---
HPI Chief Complaint: Fall Time Seen by Provider: 13:37 Travel History International Travel<30 days: No Contact w/Intl Traveler<30days: No Traveled to known affect area: No History of Present Illness HPI 42-year-old female that presents to the ED for evaluation of fall. Per patient she tripped and fell into a couch and hit her right forehead. Per patient she did not lose consciousness but had some difficulty standing on her own and her brother was concerned who witnessed the fall. She denies any blood thinners. She has any blurry vision or double vision. She does have a hematoma to the right side of her forehead. She states that the pain currently 7 out of 10. She took Beyers aspirin with some relief. She denies any fevers chills or sweats. No neck pain or back pain. No arm or leg pain. No allergies to medication. Injury occurred less than 2 hours ago. No lacerations. No numbness, tingling, weakness. No nausea or vomiting. PFSH Past Medical History Anemia: Yes Blood Disorders: No Anxiety: Yes (panic attacks at times) Cancer: No Cardiovascular Problems: Yes Diminished Hearing: No Endocrine: No Genitourinary: No Headaches: Yes Hypertension: Yes Psychiatric: Yes Respiratory: No Seizures: Yes ( A CHILD) ?: Not : 1 Para: 1 Ovarian Cysts: Yes Past Surgical History Abdominal Surgery: Yes (CSEC) Section: Yes Other Surgery: Yes Social History Alcohol Use: No Tobacco Use: No Substance Use: No Allergies-Medications (Allergen,Severity, Reaction): Coded Allergies: No Known Allergies (Verified Allergy, Unknown, 09/18/17) Reported Meds & Prescriptions Reported Meds & Active Scripts Active Diclofenac Sodium DR (Diclofenac Sodium) 75 Mg Tabdr 75 Mg PO BID PRN Lisinopril 20 Mg Tab 20 Mg PO DAILY Reported Amlodipine (Amlodipine Besylate) 10 Mg Tab 10 Mg PO DAILY Review of Systems Except as stated in HPI: all other systems reviewed are Neg Physical Exam Narrative GENERAL: SKIN: Warm and dry. HEAD: Atraumatic. Normocephalic. Patient has a hematoma to the right side of the forehead with a slight abrasion. EYES: Pupils equal and round. No scleral icterus. No injection or drainage. ENT: No nasal bleeding or discharge. Mucous membranes pink and moist. Tongue is midline. No uvula deviation. NECK: Trachea midline. No JVD. CARDIOVASCULAR: Regular rate and rhythm. No murmurs, S3, S4. RESPIRATORY: No accessory muscle use. Clear to auscultation. Breath sounds equal bilaterally. GASTROINTESTINAL: Abdomen soft, non-tender, nondistended. Hepatic and splenic margins not palpable. MUSCULOSKELETAL: Extremities without clubbing, cyanosis, or edema. No obvious deformities. Full range of motion of the upper and lower extremities bilaterally. 2+ pulses bilaterally. No lumbar, thoracic, cervical spine tenderness to palpation. NEUROLOGICAL: Awake and alert. No obvious cranial nerve deficits. Motor grossly within normal limits. Five out of 5 muscle strength in the arms and legs. Normal speech. PSYCHIATRIC: Appropriate mood and affect; insight and judgment normal. Data Data Last Documented VS Vital Signs Date Time Temp Pulse Resp B/P (MAP) Pulse Ox O2 Delivery O2 Flow Rate FiO2 09/18/17 14:47 16 09/18/17 13:43 97.8 78 150/83 (105) [address] Brain W/O Iv Contrast(Rout) (09/18/17 13:38) Acetamin-Hydrocod 325-5 Mg ([place] 5-325 (09/18/17 13:45) Ondansetron Odt (Zofran Odt) (09/18/17 13:45) Ct Cerv Spine W/O Contrast (09/18/17 ) Ed Discharge Order (09/18/17 14:59) [facility] Medical Decision Making Medical Screen Exam Complete: Yes Emergency Medical Condition: Yes Medical Record Reviewed: Yes Interpretation(s) Last Impressions Head CT 09/18/17 1338 Signed Impressions: Service Date/Time: Monday, September 18, 2017 14:18 - CONCLUSION: 1. No acute intracranial findings 2. Left occipital osteoma. Fausto Smiley MD CT cervical spine negative Differential Diagnosis Head injury versus hematoma versus contusion versus concussion Narrative Course 42-year-old female that presents to the defibrillation of head injury. Patient was properly examined and was found to have signs and symptoms consistent appears to be head injury. CT was ordered. Patient was given pain medications. CT showed no sign of acute disease. Patient was reassured. Patient was given pain medication with good relief. Patient was given a prescription for diclofenac sodium for pain. Told to apply ice to the area of pain. Follow with PCP. See ED worsening symptoms. Diagnosis Primary Impression: Head injury Qualified Codes: S09.90XA - Unspecified injury of head, initial encounter Patient Instructions: General Instructions, Narcotic given in the ED Additional Instructions: Take medication as prescribed. No heavy lifting or alcohol use for at least three days. Ice to the area. See ED worsening symptoms. Bruise will likely get worse before it gets better. Med/Other Pt SpecificInfo: Prescription(s) given Scripts Diclofenac Sodium DR (Diclofenac Sodium DR) 75 Mg Tabdr 75 MG PO BID Y for PAIN SCALE 1 TO 10, #20 TAB 0 Refills Prov: Kevin Modi MD 09/18/17 Disposition: 01 DISCHARGE HOME Condition: Stable Sy Silverman Sep 18, 2017 14:08
[2017-09-18 14:47] VITALS: RESP 16
--- NOTE | 2017-09-18 14:49 | RADRPT ---
EXAM DATE/TIME: 09/18/2017 14:18 [facility] COMPARISON: No previous studies available for comparison. INDICATIONS : Trauma; fall RADIATION DOSE: 44.52 CTDIvol (mGy) MEDICAL HISTORY : Seizures. Cardiovascular disease Hypertension. SURGICAL HISTORY : None. ENCOUNTER: Initial ACUITY: 1 day PAIN SCALE: 5/10 LOCATION: cranial TECHNIQUE: Multiple contiguous axial images were obtained of the head. Using automated exposure control and adj ustment of the mA and/or kV according to patient size, radiation dose was kept as low as reasonably a chievable to obtain optimal diagnostic quality images. DICOM format image data is available electro nically for review and comparison. FINDINGS: CEREBRUM: The ventricles are normal for age. No evidence of midline shift, mass lesion, hemorrhage or acute in farction. No extra-axial fluid collections are seen. Likely encephalomalacia of the medial occipital lobes bilaterally. POSTERIOR FOSSA: The cerebellum and brainstem are intact. The 4th ventricle is midline. The cerebellopontine angle i s unremarkable. EXTRACRANIAL: The visualized portion of the orbits is intact. SKULL: 4.3 x 1.8 cm ossification along the outer table of the left occipital bone. This finding is also note d on prior head CT reports. Images from prior studies are not immediately available for review. Likel y represents an osteoma. CONCLUSION: 1. No acute intracranial findings 2. Left occipital osteoma. Fausto Smiley MD on September 18, 2017 at 14:44 Board Certified Radiologist. This report was verified electronically.
--- NOTE | 2017-09-18 14:57 | RADRPT ---
EXAM DATE/TIME: 09/18/2017 14:18 [facility] COMPARISON: No previous studies available for comparison. INDICATIONS : Trauma; fall RADIATION DOSE: 23.48 CTDIvol (mGy) MEDICAL HISTORY : Seizures. Cardiovascular disease Hypertension. SURGICAL HISTORY : None. ENCOUNTER: Initial ACUITY: 1 day PAIN SCALE: 5/10 LOCATION: Bilateral neck TECHNIQUE: Volumetric scanning of the cervical spine was performed. Multiplanar reconstructions in the sagittal, coronal and oblique axial planes were performed. Using automated exposure control and adjustment o f the mA and/or kV according to patient size, radiation dose was kept as low as reasonably achievable to obtain optimal diagnostic quality images. DICOM format image data is available electronically f or review and comparison. FINDINGS: VERTEBRAE: Normal vertebral body height. ALIGNMENT: No evidence of subluxation. Left occipital osteoma again noted. C2-C3: The bony spinal canal is normal in size. No evidence of disc bulge or herniation. The neural forami na are bilaterally patent. C3-C4: The bony spinal canal is normal in size. No evidence of disc bulge or herniation. The neural forami na are bilaterally patent. C4-C5: The bony spinal canal is normal in size. No evidence of disc bulge or herniation. The neural forami na are bilaterally patent. C5-C6: Broad-based disc osteophyte complex and mild bilateral facet arthrosis. Mild right neural foraminal n arrowing. Central canal diameter within normal limits. C6-C7: The bony spinal canal is normal in size. No evidence of disc bulge or herniation. The neural forami na are bilaterally patent. C7-T1: Left-sided facet arthrosis. No evidence of focal disc protrusion. Central canal normal diameter. Neur al foraminal diameters within normal limits. CONCLUSION: 1. No evidence of fracture. 2. Degenerative findings of the cervical spine. Central canal diameter within normal limits at all le vels. Neural foraminal diameters within normal limits at all levels. Fausto Smiley MD on September 18, 2017 at 14:50 Board Certified Radiologist. This report was verified electronically.
[2017-09-18] MEDS ORDERED: DICL75TA PO (14:59)
[2017-09-18] MEDS ORDERED: LISI-515 PO (15:06)
[2017-09-18] MEDS ORDERED: AMLO10TA2 PO (15:06)
[2017-09-18 15:10] VITALS: BP 138/85; TEMP 97.8
== END 2017-09-18 15:10 | disposition home or self-care (01) ==
LOC: NEPE 13:01
DX: S09.90XA Unspecified injury of head, initial encounter (principal); I10 Essential (primary) hypertension; W01.0XXA Fall on same level from slipping, tripping and stumbling without subsequent striking against object, initial encounter
CPT/HCPCS: 70450; 72125